=== PATIENT | male | born 1930 | race Caucasian/White ===

== ENCOUNTER 2016-06-03 15:36 | Inpatient (IN) | payer MEDICARE, OTHER ==
[~2016-06-03] VITALS: Ht 172.7 cm; Wt 88.3 kg
[~2016-06-03 15:36] MED LIST: ALPRAZOLAM0.5 MG PO; ASPIR 8181 MG PO; ATIVAN0.5 MG PO; AVODART 0.5 MG0.5 MG PO; CEFTIN500 MG PO; CEFUROXIME500 MG PO; COMBIVENT RESPIM4 GM INH; COUMADIN4 MG PO; DALIRESP 500500 MCG PO; FERROUS SULFAT325 M2 PO; FLOMAX0.4 MG PO; IMDUR ER TAB 6060 MG PO; INDOCIN 50 MG C50 MG PO; LASIX20 MG PO; LASIX40 MG PO; LIPITOR TAB 2020 MG PO; LISINOPRIL5 MG PO; LOPRESSOR 25 MG25 MG PO; MEDROL4 MG PO; METOLAZONE5 MG PO; NEURONTIN 100100 MG PO; NORCO 5-325 TA1 EACH PO; NORVASC 5 MG TAB5 MG PO; NOVOLOG FL100 UNIT/1 SQ; NOVOLOG MI100 UNIT/1 SQ; PERCOCET 10-321 EACH PO; PREDNISONE 10 M10 MG PO; SPIRIVA RESPIMAT4 GM INH; THEO-DUR 200 M200 MG PO; VENTOLIN/PROVE0.5 ML INH; ZOLOFT50 MG PO; ZYLOPRIM 100 M100 MG PO
[2016-06-03 16:05] LABS: HEMOGLOBIN 7.8 gm/dl (14.0-17.5); RED BLOOD COUNT 3.31 M/UL (4.20-5.50); WHITE BLOOD COUNT 9.3 K/UL (4.5-11.0)
[2016-06-04 08:43] LABS: HEMOGLOBIN 7.8 gm/dl (14.0-17.5); RED BLOOD COUNT 3.36 M/UL (4.20-5.50)
[2016-06-04 08:45] LABS: WHITE BLOOD COUNT 6.9 K/UL (4.5-11.0)
[2016-06-04] MEDS ORDERED: INDOMETHACIN50 MG PO (10:47)
[2016-06-04] MEDS ORDERED: LEVEMIR100 UNIT/1 SQ (11:21)
[2016-06-04] MEDS ORDERED: NOVOLOG100 UNIT/1 SQ (11:23)
[2016-06-04] MEDS ORDERED: PERCOCET 10-321 EACH PO (11:25)
[2016-06-04] MEDS ORDERED: PROVENTIL HFA 61 INH INH (11:25)
[2016-06-04] MEDS ORDERED: FLOMAX 0.4 MG0.4 MG PO (11:26)
[2016-06-04] MEDS ORDERED: SPIRIVA18 MCG INH (11:26)
[2016-06-04] MEDS ORDERED: ZOLOFT50 MG PO (11:26)
[2016-06-04] MEDS ORDERED: IPRAT-ALBUT 0.5-3 ML INH (11:39)
[2016-06-05 03:58] LABS: HEMOGLOBIN 9.4 gm/dl (14.0-17.5)
[2016-06-05 04:04] LABS: RED BLOOD COUNT 3.84 M/UL (4.20-5.50); WHITE BLOOD COUNT 11.6 K/UL (4.5-11.0)
[2016-06-06 03:27] LABS: HEMOGLOBIN 10.1 gm/dl (14.0-17.5); RED BLOOD COUNT 4.12 M/UL (4.20-5.50); WHITE BLOOD COUNT 12.9 K/UL (4.5-11.0)
[2016-06-07 03:50] LABS: WHITE BLOOD COUNT 10.4 K/UL (4.5-11.0)
[2016-06-08 03:56] LABS: HEMOGLOBIN 9.6 gm/dl (14.0-17.5); WHITE BLOOD COUNT 9.8 K/UL (4.5-11.0)
[2016-06-09 04:09] LABS: HEMOGLOBIN 9.3 gm/dl (14.0-17.5); RED BLOOD COUNT 3.85 M/UL (4.20-5.50); WHITE BLOOD COUNT 9.7 K/UL (4.5-11.0)
[2016-06-09 04:36] LABS: BUN/CREATININE RATIO 41 (0-10)
[2016-06-10 05:37] LABS: HEMOGLOBIN 8.9 gm/dl (14.0-17.5); RED BLOOD COUNT 3.74 M/UL (4.20-5.50); WHITE BLOOD COUNT 10.4 K/UL (4.5-11.0)
[2016-06-10 06:09] LABS: BUN/CREATININE RATIO 33 (0-10)
[2016-06-10] MEDS ORDERED: MEDROL DOSEPAK 24 MG PO (16:07)
== END 2016-06-10 17:52 | DRG 292 ==
LOC: ER1 15:36 → PROG CARE 06-04 05:00 → ZEROF 06-04 05:00 → PROG CARE 06-04 09:15
PROVIDERS: Emergency Medicine; Internal Medicine; ADMIT Internal Medicine
PROC: 30233N1 Transfusion of Nonautologous Red Blood Cells into Peripheral Vein, Percutaneous Approach (ICD-10-PCS; principal; 2016-06-03)
DX: I50.43 Acute on chronic combined systolic (congestive) and diastolic (congestive) heart failure (principal); N17.9 Acute kidney failure, unspecified; J44.1 Chronic obstructive pulmonary disease with (acute) exacerbation; J98.11 Atelectasis; I13.0 Hypertensive heart and chronic kidney disease with heart failure and stage 1 through stage 4 chronic kidney disease, or unspecified chronic kidney disease; I42.8 Other cardiomyopathies; E11.65 Type 2 diabetes mellitus with hyperglycemia; E11.649 Type 2 diabetes mellitus with hypoglycemia without coma; E11.22 Type 2 diabetes mellitus with diabetic chronic kidney disease; N18.3 Chronic kidney disease, stage 3 (moderate); I48.0 Paroxysmal atrial fibrillation; R77.8 Other specified abnormalities of plasma proteins; I25.10 Atherosclerotic heart disease of native coronary artery without angina pectoris; Z66 Do not resuscitate; F41.9 Anxiety disorder, unspecified; D50.9 Iron deficiency anemia, unspecified; N40.0 Benign prostatic hyperplasia without lower urinary tract symptoms; G47.33 Obstructive sleep apnea (adult) (pediatric); H91.90 Unspecified hearing loss, unspecified ear; K57.30 Diverticulosis of large intestine without perforation or abscess without bleeding; Z99.81 Dependence on supplemental oxygen; Z86.73 Personal history of transient ischemic attack (TIA), and cerebral infarction without residual deficits; Z86.39 Personal history of other endocrine, nutritional and metabolic disease; Z79.01 Long term (current) use of anticoagulants; Z79.82 Long term (current) use of aspirin; Z79.4 Long term (current) use of insulin; Z79.891 Long term (current) use of opiate analgesic; Z79.51 Long term (current) use of inhaled steroids; Z79.899 Other long term (current) drug therapy; Z86.010 Personal history of colon polyps; Z87.891 Personal history of nicotine dependence; Z95.810 Presence of automatic (implantable) cardiac defibrillator
CPT/HCPCS: 36415; 36600; 71010; 80048; 80053; 82272; 82550; 82553; 82803; 82962; 83036; 83735; 83874; 83880; 84484; 85025; 85027; 85610; 86850; 86900; 86901; 86920; 87040; 93005; 94640; 94664; 96374; 96375; 96376; 97110; 97116; 97530; 99285; G0378; J1610; J1815; J1940; J1956; J2920; J2930; J7040; J7509; P9016; Q0162

== ENCOUNTER 2016-06-24 08:54 | Emergency (ER) | payer OTHER ==
[~2016-06-24 08:54] MED LIST changes: +FLOMAX 0.4 MG0.4 MG PO; +INDOMETHACIN50 MG PO; +IPRAT-ALBUT 0.5-3 ML INH; +LEVEMIR100 UNIT/1 SQ; +MEDROL DOSEPAK 24 MG PO; +NOVOLOG100 UNIT/1 SQ; +PROVENTIL HFA 61 INH INH; +SPIRIVA18 MCG INH
== END 2016-06-24 08:55 | disposition expired ==
LOC: ER1 08:54
DX: I46.9 Cardiac arrest, cause unspecified (principal); I13.0 Hypertensive heart and chronic kidney disease with heart failure and stage 1 through stage 4 chronic kidney disease, or unspecified chronic kidney disease; I50.9 Heart failure, unspecified; N18.9 Chronic kidney disease, unspecified; J44.9 Chronic obstructive pulmonary disease, unspecified; I48.91 Unspecified atrial fibrillation; Z95.810 Presence of automatic (implantable) cardiac defibrillator
CPT/HCPCS: 99291; J0171